=== PATIENT | male | born 1940 | race Caucasian/White ===

== ENCOUNTER 2019-01-21 10:03 | Inpatient (IN) ==
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
--- NOTE | 2019-01-10 13:18 | PAT Medication Instructions ---
Medication Instructions Date of Service January 10, 2019 Home Medications B-complex with vitamin C 1 tab PO DAILY amlodipine [Norvasc] 5 mg PO QPM ascorbic acid (vitamin C) 500 mg PO DAILY aspirin [Aspir-Low] 81 mg PO 2XWK atorvastatin 10 mg PO PM cholecalciferol (vitamin D3) 2,000 unit PO DAILY galantamine 4 mg PO BID [Centrum Silver Men] 1 tab PO DAILY venlafaxine [Effexor XR] 150 mg PO HS Stop taking NOW: galantamine 4 mg PO BID Continue as directed aspirin [Aspir-Low] 81 mg PO 2XWK DO NOT take the morning of surgery B-complex with vitamin C 1 tab PO DAILY ascorbic acid (vitamin C) 500 mg PO DAILY cholecalciferol (vitamin D3) 2,000 unit PO DAILY [Centrum Silver Men] 1 tab PO DAILY Take evening before surgery amlodipine [Norvasc] 5 mg PO QPM atorvastatin 10 mg PO PM venlafaxine [Effexor XR] 150 mg PO HS Other Notes If you have any questions please call us at [phone] or [phone] or [phone] or [phone]
--- NOTE | 2019-01-10 14:03 | XRay Report ---
XR chest Pre-admission PA/Lat HISTORY: 78 years-old Male pat preoperative exam. No acute chest complaints COMPARISON: Chest radiograph 11/22/2015 TECHNIQUE: PA and lateral views of the chest FINDINGS: Cardiac mediastinal and hilar silhouettes are within normal limits. Calcification the thoracic aortic arch. There is no pneumothorax, pleural effusion, focal airspace consolidation or overt pulmonary ed liberty. Nipple shadows project over the bilateral lung bases. Degenerative changes of the shoulders and spine. Partially imaged fusion hardware of the lumbar spine. IMPRESSION: No acute process. The above report was generated using voice recognition software. It may contain grammatical, syntax o r spelling errors. Electronically signed by: Dmitry Parrish M.D. 01/10/2019 2:02 PM
[2019-01-10 14:25] LABS: BUN Creatinine Ratio 22.9 (10-20); Calcium 8.8 mg/dl (8.5-10.1); Creatinine Clr Calc Pharmacy 82.9 ml/min; Est GFR (African American) 97.2; Est GFR (Non-African American) 83.8; Potassium 4.2 mmol/L (3.5-5.1)
[2019-01-10 14:33] LABS: Appearance Urine Clear (Clear); Bacteria Urine Automated Negative (Negative); Bilirubin Urine Negative (Negative); Blood Urine Negative (Negative); Color Urine Yellow; Epithelial Cell Urine Auto >30 /lpf (0-5); Glucose Urine UA Negative (Negative); Ketones Urine Negative (Negative); Leukocyte Esterase Urine 1+ (Negative); Nitrite Urine Negative (Negative); Protein Urine Negative (Negative); RBC Urine Automated 0-4 /hpf (0-4); Specific Gravity Urine 1.017 (1.000-1.030); Urobilinogen Urine Negative (Negative); pH Urine 5.5 (4.5-7.5)
[2019-01-10 14:36] LABS: Partial Thromboplastin Time 27.9 Seconds (21.0-31.0); Prothrombin Time 10.5 Seconds (9.0-12.0)
[2019-01-10 14:59] LABS: Basophils # (auto) 0.03 K/uL (0-0.2); Basophils % (auto) 0.4 %; Eosinophils # (auto) 0.43 K/uL (0-0.5); Eosinophils % (auto) 6.2 %; Hematocrit (blood only) 42.7 % (42-52); Hemoglobin 14.6 g/dL (14.0-18.0); Immature Granulocytes # (auto) 0.02 K/uL (0.00-0.02); Immature Granulocytes % (auto) 0.3 %; Lymphocytes # (auto) 1.74 K/uL (1.2-3.4); Lymphocytes % (auto) 24.9 %; Mean Corpuscular Hgb Conc 34.2 g/dL (32-36); Mean Corpuscular Volume 91.4 fL (80-100); Monocytes % (auto) 8.6 %; Neutrophils # (auto) 4.17 K/uL (1.4-6.5); Neutrophils % (auto) 59.6 %; RDW Coefficient of Variation 13.4 % (11.5-14.5); RDW Standard Deviation 44.4 fL (36.4-46.3); Red Blood Count 4.67 M/uL (4.7-6.1); White Blood Count 6.99 K/uL (4.8-10.8)
[~2019-01-21 10:03] MED LIST: BUPIVACAINE 0.5 % 5 MG/1 ML PF 10ML VIAL ONE; CEFAZOLIN 2000MG 2,000 MG/15 ML SYR IV SCH; EPINEPHrine INJ 1 MG/ML AMP ONE; LR 500ML BOLUS, THEN 15ML/HR IV SCH; MIDAZOLAM HCL 1 MG/ML 2ML VIAL ONE; ROPIVACAINE 0.5% 5 MG/ML 30 ML VIAL ONE; fentaNYL citrate 100 MCG/2 ML VIAL ONE
--- NOTE | 2019-01-21 10:30 | History & Physical Bridge Note ---
Date of Service January 21, 2019 History & Physical Bridge Note I have examined the patient, reviewed the History & Physical and in the interval since the performance of the History & Physical I have noted the following changes of clinical significance: no changes noted
[2019-01-21] MEDS ORDERED: ATROPINE SULFATE 0.1 MG/ML 10ML SYR IV PRN (10:57)
[2019-01-21] MEDS ORDERED: ePHEDrine sulfate 50 MG/ML AMP IV PRN (10:57)
[2019-01-21] MEDS ORDERED: HYDROmorphone INJ 1 MG/ML SYRINGE IV PRN (10:57)
[2019-01-21] MEDS ORDERED: fentaNYL citrate 100 MCG/2 ML VIAL IV PRN (10:57)
[2019-01-21] MEDS ORDERED: ONDANSETRON INJ 2 MG/ML 2 ML VIAL IV PRN ×2 (10:57→14:40)
[2019-01-21] MEDS ORDERED: POVIDONE-IODINE OP SOLN 30 ML BTL ONE (11:01)
[2019-01-21] MEDS ORDERED: BACITRACIN INJ 50,000 UNIT VIAL ONE (11:01)
[2019-01-21] MEDS ORDERED: PROPOFOL IV EMULSION 10 MG/ML 20 ML VIAL IV ONE (12:38)
[2019-01-21] MEDS ORDERED: LIDOCAINE HCL 2% 2 ML VIAL/AMP(20MG/ML) INFIL ONE (12:38)
--- NOTE | 2019-01-21 13:09 | Operative Report ---
Post Operative Report Pre & Post Diagnosis Operation Date: 01/21/19 12:35 Pre-Op Diagnosis: Left Knee Medial Retinacular Tear Post-Op Diagnosis: Left Knee Medial Retinacular Tear Procedure Operation Date: 01/21/19 12:35 Actual Procedures p Left Knee Medial Retinacular Repair of Left Total Knee Arthroplasty with poly- exchange up sized to size 10 x 7 8 exchange(Left) - Lowell Herzog DO Surgeon Lowell Herzog DO Supervisor Irrigation James KEITH Estimated Blood Loss 5 Findings Consistent with Post-Op Diagnosis Patient presents with a tear of the medial retinaculum with lateral tilting patella mild medial lateral collateral ligament laxity patient presents for medial retinacular repair with poly-change patient's been no response to bracing patellofemoral bracing physical therapy relative rest strengthening the above intraoperative findings were noted with patellar retinacular medial side tear with lateral subluxing patella Specimens Poly- Drains Medium bore Hemovac Complications none Disposition Accompanied Patient To Recovery: No Disposition: Recovery Room Indications Patient presents with lateral subluxing patella no response to conservative management of a tear involving medial retinaculum patient presents for medial retinacular tear repair with poly-change the poly-was upsized to a size 10 after patient is failed attempts at conservative management including physical therapy bracing patellofemoral bracing relative rest activity modification patient presents for medial retinacular tear repair the above findings noted times surgery Description of Procedure After proper prepping draping the left lower extremity incision over the region the previous incision was made down to the extensor mechanism patella was subluxed lateralward the patella was then retracted with a tilt and lateral subluxed position there was a palpable defect involving the medial retinaculum as well after performing thorough synovectomy poly-was changed up sized to a size 10 gave excellent fit and stability in both flexion extension mid flexion through all ranges of motion no instability was noted the patella was released scar was excised a lateral retinacular release was performed the patellar component to be in excellent position subsequently patella tracked now in excellent position medial retinaculum was repaired with #1 Vicryl and several sutures of #2 #2 FiberWire the retinaculum was now repaired and the patella was noted be tracking in excellent position with AP and lateral planes with the patellofemoral flexion extension subsequently the wound was irrigated with copious muscle sterile saline solution subcuticular 2-0 Vicryl skin was closed skin clips sterile compressive dressings placed patient placed in the immo bilizer taken recovery in stable condition please note James KEITH was necessary prepping draping retraction wound closure of the fascia subcu skin was necessary for the case I attest to the content of the Intraoperative Record and any orders documented therein. Any exceptions are noted below.
--- NOTE | 2019-01-21 14:03 | Anesthesiology Progress Note ---
Date of Service January 21, 2019 Anesthesia Post Procedure Vital Signs Vital Signs: Temp Pulse Pulse Resp BP Pulse Ox 01/21/19 14:00 56 L 16 126/52 L 96 01/21/19 13:50 58 L 16 124/59 L 96 01/21/19 13:43 36.2 C L 63 16 119/59 L 96 01/21/19 10:38 36.7 C 62 16 163/61 H 98 Notes Mental Status: alert / awake / arousable and participated in evaluation Nausea / Vomiting: adequately controlled Pain: adequately controlled Airway Patency, RR, SpO2: stable & adequate BP & HR: stable & adequate Hydration State: stable & adequate Neuraxial Anesthesia: was administered and sensory block is resolving Anesthetic Complications: no major complications apparent and Pt Satisfied with anesthetic care
--- NOTE | 2019-01-21 14:21 | XRay Report ---
XR knee LT 2V routine CLINICAL HISTORY: Surgical Post Op COMPARISON: None. DISCUSSION: Anatomic alignment post total left knee arthroplasty. Good contact between prosthetic and underlying bone. Expected post operative soft tissue change. IMPRESSION: Anatomic alignment post total left knee arthroplasty. The above report was generated using voice recognition software. It may contain grammatical, syntax or spelling errors. Electronically signed by: Jose Manuel Lerner M.D. 01/21/2019 2:20 PM
[2019-01-21] MEDS ORDERED: HYDROmorphone INJ 0.5 MG/0.5 ML SYR IV PRN (14:40)
[2019-01-21] MEDS ORDERED: SODIUM CHLORIDE 0.9% 1000ML 1,000 ML IV SCH (14:40)
[2019-01-21] MEDS ORDERED: BISACODYL 10 MG SUPP PR PRN (14:40)
[2019-01-21] MEDS ORDERED: MAGNESIUM HYDROXIDE SUSP 30 ML UDC PO PRN (14:40)
[2019-01-21] MEDS ORDERED: METOCLOPRAMIDE HCL INJ 5 MG/ML 2 ML VIAL IV PRN (14:40)
[2019-01-21] MEDS ORDERED: NALOXONE HCL 0.4 MG/1 ML VIAL/CARP IV PRN (14:40)
[2019-01-21] MEDS: ACETAMINOPHEN 500 MG TAB PO SCH ×2 (15:31→20:29)
[2019-01-21] MEDS: OXYCODONE HCL IR 5 MG TAB (IMMEDIATE RELEASE) PO PRN (16:42)
[2019-01-21] MEDS: GALANTAMINE HYDROBROMIDE 4 MG TAB PO SCH (20:29)
[2019-01-21] MEDS: DOCUSATE SODIUM 100 MG CAP PO SCH (20:29)
[2019-01-21] MEDS: ASPIRIN 81 MG ECTAB PO SCH (20:29)
[2019-01-21] MEDS: CEFAZOLIN 2000MG 2,000 MG/15 ML SYR IV SCH (20:32)
[2019-01-21] MEDS ORDERED: AMLODIPINE BESYLATE 5 MG TAB PO SCH (21:00)
[2019-01-21] MEDS ORDERED: VENLAFAXINE HCL XR 150 MG CAPXR PO SCH (21:00)
[2019-01-21] MEDS ORDERED: ATORVASTATIN 10 MG TAB PO SCH (21:00)
[2019-01-21] MEDS ORDERED: SENNA 8.6 MG TAB PO SCH (21:00)
[2019-01-22] MEDS: OXYCODONE HCL IR 5 MG TAB (IMMEDIATE RELEASE) PO PRN ×3 (00:02→12:47)
[2019-01-22] MEDS: CEFAZOLIN 2000MG 2,000 MG/15 ML SYR IV SCH (04:31)
[2019-01-22] MEDS: ACETAMINOPHEN 500 MG TAB PO SCH ×2 (05:01→13:38)
[2019-01-22 07:36] LABS: BUN Creatinine Ratio 18.9 (10-20); Calcium 8.2 mg/dl (8.5-10.1); Creatinine Clr Calc Pharmacy 66.8 ml/min; Est GFR (African American) 77.7; Est GFR (Non-African American) 67.1
[2019-01-22 08:01] VITALS: TEMP 98.8; O2SAT 93
[2019-01-22 08:14] LABS: Hemoglobin 12.5 g/dL (14.0-18.0); Mean Corpuscular Hgb Conc 32.9 g/dL (32-36); Mean Corpuscular Volume 91.3 fL (80-100); RDW Coefficient of Variation 13.3 % (11.5-14.5); RDW Standard Deviation 43.6 fL (36.4-46.3); Red Blood Count 4.16 M/uL (4.7-6.1); White Blood Count 8.46 K/uL (4.8-10.8)
--- NOTE | 2019-01-22 08:36 | Anesthesiology Progress Note ---
Date of Service January 22, 2019 Anesthesia Post Procedure Vital Signs Vital Signs: Temp Pulse Pulse Resp BP BP Pulse Ox 01/22/19 07:57 37.1 C 70 18 138/66 93 01/22/19 04:20 37.3 C 79 16 139/77 92 01/21/19 23:05 36.9 C 66 16 147/68 H 95 01/21/19 19:41 36.8 C 60 18 121/48 L 94 01/21/19 17:30 36.6 C 60 18 153/63 H 94 01/21/19 16:25 36.8 C 61 18 154/63 H 96 01/21/19 15:18 36.6 C 53 L 19 152/67 H 95 01/21/19 14:45 62 16 150/61 H 95 01/21/19 14:10 36.4 C L 56 L 16 127/56 L 96 01/21/19 14:00 56 L 16 126/52 L 96 01/21/19 13:50 58 L 16 124/59 L 96 01/21/19 13:43 36.2 C L 63 16 119/59 L 96 01/21/19 10:38 36.7 C 62 16 163/61 H 98 Pain Intensity Left Leg: Pain Intensity: 4 Notes Mental Status: alert / awake / arousable Patient Amnestic to Procedure: Yes Nausea / Vomiting: adequately controlled Pain: improving with treatment Airway Patency, RR, SpO2: stable & adequate BP & HR: stable & adequate Hydration State: stable & adequate Neuraxial Anesthesia: was administered and sensory block resolved Anesthetic Complications: no major complications apparent
[2019-01-22] MEDS: DOCUSATE SODIUM 100 MG CAP PO SCH (08:55)
[2019-01-22] MEDS: GALANTAMINE HYDROBROMIDE 4 MG TAB PO SCH (08:56)
[2019-01-22] MEDS: ASPIRIN 81 MG ECTAB PO SCH (08:56)
[2019-01-22] MEDS ORDERED: MULTIVITAMIN TAB PO SCH (09:00)
--- NOTE | 2019-01-22 09:00 | Orthopedic Progress Note ---
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: POD #1 s/p let knee poly exchange and medial retinaculum repair pt/ot dvt proph with dianna/scd/asa plan on discharge home with HHPT after PT today Subjective POD #1 s/p Left Knee Medial Retinacular Repair of Left Total Knee Arthroplasty with poly-exchange up sized to size 10 x 7 8 exchange(Left) Constitutional: no fever and no chills Respiratory: no cough and no dyspnea Cardiovascular: no chest pain Physical Exam Vital Signs (Past 24 Hours): Last Vital Signs Temp 37.1 C 01/22/19 07:57 Pulse 70 01/22/19 07:57 Resp 18 01/22/19 07:57 BP 138/66 01/22/19 07:57 Pulse Ox 93 01/22/19 07:57 Constitutional: WD/WN, vitals as above no acute distress Musculoskeletal: Left Knee: NVDI, calf SNT, negative aime sign. DP palpable, able to wiggle toes/ankle movement without difficulty. dressing clean dry and intact. Results & Data Laboratory Results Laboratory Results WBC 8.46 K/uL (4.8-10.8) 01/22/19 06:39 RBC 4.16 M/uL (4.7-6.1) L 01/22/19 06:39 Hgb 12.5 g/dL (14.0-18.0) L 01/22/19 06:39 Hct 38.0 % (42-52) L 01/22/19 06:39 MCV 91.3 fL (80-100) 01/22/19 06:39 MCH 30.0 pg (25-34) 01/22/19 06:39 MCHC 32.9 g/dL (32-36) 01/22/19 06:39 RDW Std Deviation 43.6 fL (36.4-46.3) 01/22/19 06:39 RDW Coeff of Janet 13.3 % (11.5-14.5) 01/22/19 06:39 Plt Count K/uL (130-400) 01/22/19 06:39 MPV fL (7.4-10.4) 01/10/19 13:34 Immature Gran % (Auto) 0.3 % 01/10/19 13:34 Neut % (Auto) 59.6 % 01/10/19 13:34 Lymph % (Auto) 24.9 % 01/10/19 13:34 [place] % (Auto) 8.6 % 01/10/19 13:34 Eos % (Auto) 6.2 % 01/10/19 13:34 Baso % (Auto) 0.4 % 01/10/19 13:34 Immature Gran # (Auto) 0.02 K/uL (0.00-0.02) 01/10/19 13:34 Neut # (Auto) 4.17 K/uL (1.4-6.5) 01/10/19 13:34 Lymph # (Auto) 1.74 K/uL (1.2-3.4) 01/10/19 13:34 [place] # (Auto) 0.60 K/uL (0.11-0.59) H 01/10/19 13:34 Eos # (Auto) 0.43 K/uL (0-0.5) 01/10/19 13:34 Baso # (Auto) 0.03 K/uL (0-0.2) 01/10/19 13:34 Plt Count ,Citrate 152 K/uL (130-400) 01/22/19 08:39 PT 10.5 Seconds (9.0-12.0) 01/10/19 13:34 INR 1.0 (0.9-1.1) 01/10/19 13:34 APTT 27.9 Seconds (21.0-31.0) 01/10/19 13:34 PTT Ratio 1.0 01/10/19 13:34 Sodium 141 mmol/L (136-145) 01/22/19 06:39 Potassium 4.0 mmol/L (3.5-5.1) 01/22/19 06:39 Chloride 110 mmol/L (98-107) H 01/22/19 06:39 Carbon Dioxide 27 mmol/L (21-32) 01/22/19 06:39 Anion Gap 5.0 (3-11) 01/22/19 06:39 BUN 20 mg/dl (7-18) H 01/22/19 06:39 Creatinine 1.07 mg/dl (0.6-1.4) 01/22/19 06:39 Est Cr Clr Drug Dosing 66.8 ml/min 01/22/19 06:39 Est GFR ( Amer) 77.7 01/22/19 06:39 Est GFR (Non-Af Amer) 67.1 01/22/19 06:39 BUN/Creatinine Ratio 18.9 (10-20) 01/22/19 06:39 Glucose 138 mg/dl (70-99) H 01/22/19 06:39 Calcium 8.2 mg/dl (8.5-10.1) L 01/22/19 06:39 Urine Color Yellow 01/10/19 13:34 Urine Appearance Clear (Clear) 01/10/19 13:34 Urine pH 5.5 (4.5-7.5) 01/10/19 13:34 Ur Specific [place] 1.017 (1.000-1.030) 01/10/19 13:34 Urine Protein Negative (Negative) 01/10/19 13:34 Urine Glucose (UA) Negative (Negative) 01/10/19 13:34 Urine Ketones Negative (Negative) 01/10/19 13:34 Urine Blood Negative (Negative) 01/10/19 13:34 Urine Nitrite Negative (Negative) 01/10/19 13:34 Urine Bilirubin Negative (Negative) 01/10/19 13:34 Urine Urobilinogen Negative (Negative) 01/10/19 13:34 Ur Leukocyte Esterase 1+ (Negative) H 01/10/19 13:34 Urine WBC (Auto) 10-30 /hpf (0-5) H 01/10/19 13:34 Urine RBC (Auto) 0-4 /hpf (0-4) 01/10/19 13:34 U Hyaline Cast (Auto) 1-5 /lpf (0-5) 01/10/19 13:34 U Epithel Cells (Auto) >30 /lpf (0-5) H 01/10/19 13:34 Urine Bacteria (Auto) Negative (Negative) 01/10/19 13:34 Blood Type O Positive 01/10/19 13:34 Antibody Screen NEGATIVE 01/10/19 13:34 Diagnostic Findings XR knee LT 2V routine CLINICAL HISTORY: Surgical Post Op COMPARISON: None. DISCUSSION: Anatomic alignment post total left knee arthroplasty. Good contact between prosthetic and underlying bone. Expected post operative soft tissue change. IMPRESSION: Anatomic alignment post total left knee arthroplasty.
[2019-01-22 12:20] VITALS: BP 139/77; PULSE 79
--- NOTE | 2019-01-23 09:39 | Discharge Summary ---
Date of Service January 31, 2019 Admission HPI Per Admitting Provider Mr Dougherty is a 78 year old male who complains of left knee pain, here today for pre-op left knee medial retinaculum repair poss. poly exchange on 01-21-19. He states that the symptoms have been chronic traumatic. Bryant states that the symptoms began as the result of Pt. fell summer. The symptoms occur constantly. The problem is unchanged. Currently the patient states that the symptoms are Pain is mild. The symptoms occur continuously. In addition to left knee pain, the patient is also experiencing instability. The patient has had a previous x-ray. Images from 01-07-18 displayed lateral tilt patella. Prior NSAIDs include Aleve and aspirin. He has had Pt. has a cane, walker and brace. Patient has had previous therapy. He attended physical therapy. Patient has had joint replacement. 12-08-15 Dr. Herzog performed Left TKA. Pt. is retired. He lives in a 2 story home with his with 14 stairs to access his living area. Discharge Data Consultations 01/21/19 14:40 Consult Case Management - Discharge Planning Routine Procedures Performed Operation Date: 01/21/19 12:35 Actual Procedures p Left Knee Medial Retinacular Repair of Left Total Knee Arthroplasty,Poly Exchange(Left) - Lowell Herzog DO
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
== END 2019-01-22 14:34 | disposition home or self-care (01) | DRG 489 ==
LOC: ASU 10:03 → 3W 13:49